=== PATIENT | female | born 1975 ===

== ENCOUNTER 2024-03-07 03:45 | Day surgery (SDC) | payer OTHER ==
[~2024-03-07 03:45] MED LIST: Sod Ferric Gluc Complx/Sucrose 125 MG in NS 100 ML IV SCH
[2024-03-07 13:56] VITALS: BP 116/84
[2024-03-07] MEDS ORDERED: Vitamin C100 M1 PO (14:03)
[2024-03-07] MEDS ORDERED: Ginger500 MG PO (14:03)
[2024-03-07] MEDS ORDERED: MAGNESIUM OXID500 MG PO (14:03)
== END 2024-03-07 15:03 | disposition home or self-care (01) ==
LOC: ATC 03:45
DX: D50.9 Iron deficiency anemia, unspecified (principal); N95.1 Menopausal and female climacteric states
CPT/HCPCS: 96365; J2916

== ENCOUNTER 2024-03-30 05:32 | Day surgery (SDC) | payer OTHER ==
[~2024-03-30 05:32] MED LIST changes: +Ginger500 MG PO; +MAGNESIUM OXID500 MG PO; +Vitamin C100 M1 PO
[2024-03-30 16:22] VITALS: BP 124/80
--- NOTE | 2024-04-01 13:31 | NUR ---
STOP TIME FOR KELLIE ON 03/30/24 IS 2063
== END 2024-03-30 17:29 | disposition home or self-care (01) ==
LOC: ATC 05:32
DX: D50.9 Iron deficiency anemia, unspecified (principal); F41.1 Generalized anxiety disorder; Z79.899 Other long term (current) drug therapy
CPT/HCPCS: 96365; J2916

== ENCOUNTER 2024-04-07 00:16 | Day surgery (SDC) | payer OTHER ==
[~2024-04-07 00:16] MED LIST changes: -Sod Ferric Gluc Complx/Sucrose 125 MG in NS 100 ML IV SCH
[2024-04-07] MEDS ORDERED: Sod Ferric Gluc Complx/Sucrose 125 MG in NS 100 ML IV SCH (06:00)
[2024-04-07 14:59] VITALS: BP 113/79
== END 2024-04-07 16:18 | disposition home or self-care (01) ==
LOC: ATC 00:16
DX: D50.9 Iron deficiency anemia, unspecified (principal)
CPT/HCPCS: 96365; J2916

== ENCOUNTER 2024-04-13 00:05 | Day surgery (SDC) | payer OTHER ==
[2024-04-13] MEDS ORDERED: Sod Ferric Gluc Complx/Sucrose 125 MG in NS 100 ML IV SCH (06:00)
[2024-04-13 15:35] VITALS: BP 116/91
== END 2024-04-13 16:36 | disposition home or self-care (01) ==
LOC: ATC 00:05
DX: D50.9 Iron deficiency anemia, unspecified (principal); F41.1 Generalized anxiety disorder; N39.3 Stress incontinence (female) (male)
CPT/HCPCS: 96365; J2916

== ENCOUNTER 2024-04-20 01:46 | Day surgery (SDC) | payer OTHER ==
[~2024-04-20 01:46] MED LIST changes: +Sod Ferric Gluc Complx/Sucrose 125 MG in NS 100 ML IV SCH
[2024-04-20 15:52] VITALS: BP 130/81
== END 2024-04-20 16:56 | disposition home or self-care (01) ==
LOC: ATC 01:46
DX: D50.9 Iron deficiency anemia, unspecified (principal); E66.3 Overweight; Z68.27 Body mass index [BMI] 27.0-27.9, adult; N39.3 Stress incontinence (female) (male); F41.1 Generalized anxiety disorder
CPT/HCPCS: 96365; J2916